=== PATIENT | female | born 1970 | race Caucasian/White ===

== ENCOUNTER → 2020-10-29 | Day surgery (SDC) | payer OTHER ==
[~2020-10-29] VITALS: Ht 162.6 cm; Wt 74.8 kg
[~2020-10-29] MED LIST: ADVAIR HFA 115-28 GM; CLEOCIN300 MG PO; COMBIVENT RESPIM4 GM; MVI PO; PERCOCET 5-3251 EACH PO
[2020-10-29 11:27] LABS: HCT 44.9 % (37.0-47.0); HGB 14.5 g/dl (12.5-16.0); MCH 29.7 pg (25.0-31.0); MCHC 32.3 g/dL (32.0-36.0); RBC 4.88 M/uL (4.20-5.40); RDW 13.5 % (11.5-14.0); WBC 10.4 K/uL (4.0-10.5)
[2020-10-29 11:41] LABS: ALBUMIN 3.7 g/dL (3.4-5.0); BILIRUBIN - TOTAL 0.5 mg/dL (0.2-1.0); BUN/CREAT RATIO (CALC) 31.3 RATIO; CREATININE 0.67 mg/dL (0.51-0.95); GLOBULIN (CALCULATION) 4.3 g/dL; POTASSIUM 3.6 mmol/L (3.5-5.1)
== END | disposition home or self-care (01) ==
LOC: FAS 10:26
PROVIDERS: Orthopaedic Surgery
DX: T84.84XA Pain due to internal orthopedic prosthetic devices, implants and grafts, initial encounter (principal); J44.9 Chronic obstructive pulmonary disease, unspecified; F31.9 Bipolar disorder, unspecified; F17.210 Nicotine dependence, cigarettes, uncomplicated; Z88.0 Allergy status to penicillin; Z88.5 Allergy status to narcotic agent; Z79.2 Long term (current) use of antibiotics; Z79.891 Long term (current) use of opiate analgesic; Z79.899 Other long term (current) drug therapy
CPT/HCPCS: 36415; 73070; 76000; 80053; J1100; J1170; J2250; J2270; J2405; J2704; J7120